=== PATIENT | male | born 1950 | race Caucasian/White ===

== ENCOUNTER 2017-04-22 13:57 | Emergency (ER) | payer MEDICARE, OTHER, SELFPAY ==
[2017-04-22 13:57] VITALS: BMI 32.1
--- NOTE | 2017-04-22 14:41 | ED.DCSUM_ITS ---
- ER Visit Summary Date of Service: 04/22/17 Chief Complaint: Unresponsive History of Present Illness: The patient is a 66 M who according to saw his doctor today for cough. He ate lunch. He apparently did not feel well. He walked from the kitchen to the living room and lied on the sofa. heard a gasp. She went to check on him and he was unresponsive to verbal or physical stimulation per . CPR was initiated and a call was placed to 911. Upon EMS arrival patient was found to be in V. fib. He was shocked twice. He was intubated. He did receive appropriate meds per ACLS algorithm. Physical Examination: Patient arrived his GCS was 3T. His pupils were fixed and dilated. Breath sounds were noted bilaterally. There was no palpable pulse. Transthoracic echo performed by me revealed no cardiac activity. Test Results: None Emergency Department Course and Treatment: With rhythm of asystole, downtime greater than 30 minutes and fixed dilated pupil with no cardiac activity on echo patient was pronounced at 1359. Treatment Plan: Contact corner Disposition: Contact PCP and corner Impression: Cardiopulmonary arrest of unknown etiology History coronary disease History of hypertension History of hypercholesterolemia This note was generated with [employer] dictation software. It may contain incorrect words, spelling, and punctuation that were not noted in review of the chart prior to signing ED Disposition - Plan for ED Patient: Chief Complaint: CPR Referrals: Sergio Esteves MD [Primary Care Provider] -
--- NOTE | 2017-04-22 16:21 | CHAPLAIN ---
Type of Pastoral Visit ___ Initial Visit ___ Follow-up Visit ___ On-call Visit ___ General Patient Visit ___ Spiritual Assessment ___ Family Conference ___ Bereavement ___ Rapid Response _x__ Code Blue ___ Other (describe below) Pastoral Care Referral From ___ Patient ___ Family ___ Nurse ___ Physician ___ Chemical Waste Management Technician ___ Financial Sales Advisor _x__ Other (describe below) Sacrament/Intervention ___ Active listening ___ Anointing ___ Hinduism ___ Bereavement ___ Communion ___ Farnaz exploration ___ ___ Life review _x__ Prayer ___ Reconciliation ___ Sacrament of Sick _x__ Supportive presence ___ Wedding _x__ Other (describe below) Pastoral Comments met family as they arrived; brought DR into room and was available for family support as they learned of of pt; provided assistance as family members made their respects to the ; gave prayer with family in waiting area; met local agricultural equipment sales manager who then came to support family;
== END 2017-04-22 17:11 ==
PROVIDERS: Emergency Provider Emergency Medicine; Family Provider Family Medicine; PCP Family Medicine
DX: I46.9 Cardiac arrest, cause unspecified (principal); I49.01 Ventricular fibrillation; I25.10 Atherosclerotic heart disease of native coronary artery without angina pectoris; I10 Essential (primary) hypertension; E78.00 Pure hypercholesterolemia, unspecified; Z79.82 Long term (current) use of aspirin; Z79.899 Other long term (current) drug therapy
CPT/HCPCS: 92950; 99285